=== PATIENT | male | born 1980 | race Caucasian/White ===

== ENCOUNTER 2021-06-19 11:38 | Inpatient (IN) | payer BC ==
[2021-06-19] MEDS ORDERED: IBUPROFEN 400 MG TABLET (FP) PO PRN (12:26)
[2021-06-19] MEDS ORDERED: ONDANSETRON *ODT* 4 MG TABLET SL PRN (12:26)
[2021-06-19] MEDS ORDERED: MAGNESIUM HYDROX 2400MG/30ML ORAL SUSPENSION 30 ML CUP PO PRN (12:26)
[2021-06-19] MEDS ORDERED: MAGNESIUM CITRATE 300 ML BOTTLE PO PRN (12:26)
[2021-06-19] MEDS ORDERED: BISMUTH SUBSALICYLATE 524 MG/30 ML PO PRN (12:26)
[2021-06-19] MEDS ORDERED: MENTHOL/PHENOL 1 EACH UD MM PRN (12:26)
[2021-06-19] MEDS ORDERED: NICOTINE 10 MG CARTRIDGE (INHALER) IH PRN (12:26)
[2021-06-19] MEDS ORDERED: ACETAMINOPHEN 325 MG TABLET (FP) PO PRN ×2 (12:26)
[2021-06-19] MEDS ORDERED: diazePAM 5 MG TABLET PO PRN (12:26)
[2021-06-19] MEDS ORDERED: METHOCARBAMOL 500 MG TABLET PO PRN (12:26)
[2021-06-19] MEDS ORDERED: MAG HYDROX/AL HYDROX/SIMETH 30 ML UNIT-DOSE CUP PO PRN (12:26)
[2021-06-19 12:41] VITALS: BMI 26.2
[2021-06-19] MEDS ORDERED: ALBUTEROL SO4 HFA INHALER IH PRN (14:34)
[2021-06-19] MEDS: hydrOXYzine PAMOATE 25 MG CAPSULE (FP) PO SCH ×3 (15:00→22:27)
[2021-06-19] MEDS: NICOTINE 14 MG/24 HOURS TOPICAL PATCH TD SCH (15:58)
[2021-06-19] MEDS: PRENATAL VITAMINS W/ FOLIC ACID TABLET (FP) PO SCH (15:58)
[2021-06-19 17:06] LABS: HEMATOCRIT 38.1 % (35.4-49); HEMOGLOBIN 12.6 GM/dL (11.7-16.9); MCH 27.9 pg (25.7-33.7); MEAN CELL VOLUME 84.5 fl (80-96); MEAN PLT VOLUME 10.3 fl (7.5-11.1); PLATELET COUNT 115 10^3/uL (134-434); RBC 4.51 M/mm3 (4.00-5.60); RDW 14.2 % (11.9-15.9); WHITE BLOOD COUNT 3.5 K/mm3 (4.0-10.0)
[2021-06-19 17:13] LABS: ALBUMIN 3.3 g/dl (3.4-5.0); BLOOD UREA NITROGEN 5.7 mg/dL (7-18); CALCIUM 8.9 mg/dL (8.5-10.1)
[2021-06-19 17:18] LABS: BILIRUBIN,TOTAL 0.2 mg/dL (0.2-1); TOT PROT 7.1 g/dl (6.4-8.2)
[2021-06-19] MEDS: diazePAM 5 MG TABLET PO SCH ×2 (17:26→22:27)
[2021-06-19] MEDS: THIAMINE HCL 100 MG TABLET (FP) PO SCH (22:27)
[2021-06-19] MEDS: MELATONIN 5 MG TABLETS PO SCH (22:27)
[2021-06-20] MEDS ORDERED: methaDONE HCL 10 MG TABLET ONE (04:42)
[2021-06-20] MEDS ORDERED: methaDONE HCL 40 MG DISPERSABLE TABLET ONE (04:43)
[2021-06-20] MEDS: diazePAM 5 MG TABLET PO SCH ×4 (05:16→22:23)
[2021-06-20] MEDS: hydrOXYzine PAMOATE 25 MG CAPSULE (FP) PO SCH ×5 (05:16→22:23)
[2021-06-20] MEDS ORDERED: methaDONE HCL 40 MG DISPERSABLE TABLET PO SCH (10:00)
[2021-06-20] MEDS: PRENATAL VITAMINS W/ FOLIC ACID TABLET (FP) PO SCH (10:30)
[2021-06-20] MEDS: NICOTINE 14 MG/24 HOURS TOPICAL PATCH TD SCH (10:31)
[2021-06-20] MEDS ORDERED: QUEtiapine FUMARATE 50 MG TABLET PO SCH (22:00)
[2021-06-20] MEDS ORDERED: DIVALPROEX NA *ER* EXTEND REL 250 MG TABLET.SA PO SCH (22:00)
[2021-06-20] MEDS: QUEtiapine FUMARATE 200 MG TABLET PO SCH (22:22)
[2021-06-20] MEDS: DIVALPROEX NA *ER* EXTEND REL 250 MG TABLET.SA PO SCH (22:23)
[2021-06-20] MEDS: MELATONIN 5 MG TABLETS PO SCH (22:23)
[2021-06-20] MEDS: THIAMINE HCL 100 MG TABLET (FP) PO SCH (22:25)
[2021-06-21] MEDS ORDERED: methaDONE HCL 40 MG DISPERSABLE TABLET ONE (04:18)
[2021-06-21] MEDS ORDERED: methaDONE HCL 10 MG TABLET ONE (04:18)
[2021-06-21] MEDS: hydrOXYzine PAMOATE 25 MG CAPSULE (FP) PO SCH ×5 (05:42→22:42)
[2021-06-21] MEDS: diazePAM 5 MG TABLET PO SCH ×3 (05:42→22:41)
[2021-06-21] MEDS: DIVALPROEX NA *ER* EXTEND REL 250 MG TABLET.SA PO SCH ×2 (10:28→22:41)
[2021-06-21] MEDS: NICOTINE 14 MG/24 HOURS TOPICAL PATCH TD SCH (10:28)
[2021-06-21] MEDS: PRENATAL VITAMINS W/ FOLIC ACID TABLET (FP) PO SCH (10:28)
[2021-06-21] MEDS: SERTRALINE HCL 50 MG TABLET (FP) PO SCH (10:29)
[2021-06-21] MEDS: ARIPiprazole 5 MG TABLET PO SCH (10:29)
[2021-06-21 18:27] LABS: HIV INTERPRETATION NEGATIVE (NEGATIVE)
[2021-06-21] MEDS: MELATONIN 5 MG TABLETS PO SCH (22:40)
[2021-06-21] MEDS: QUEtiapine FUMARATE 200 MG TABLET PO SCH (22:41)
[2021-06-21] MEDS: THIAMINE HCL 100 MG TABLET (FP) PO SCH (22:42)
[2021-06-22] MEDS ORDERED: methaDONE HCL 10 MG TABLET ONE (04:20)
[2021-06-22] MEDS ORDERED: methaDONE HCL 40 MG DISPERSABLE TABLET ONE (04:21)
[2021-06-22] MEDS: hydrOXYzine PAMOATE 25 MG CAPSULE (FP) PO SCH ×5 (05:26→22:28)
[2021-06-22] MEDS: diazePAM 5 MG TABLET PO SCH ×2 (05:27→17:49)
[2021-06-22] MEDS: DIVALPROEX NA *ER* EXTEND REL 250 MG TABLET.SA PO SCH ×2 (10:30→22:28)
[2021-06-22] MEDS: PRENATAL VITAMINS W/ FOLIC ACID TABLET (FP) PO SCH (10:30)
[2021-06-22] MEDS: SERTRALINE HCL 50 MG TABLET (FP) PO SCH (10:30)
[2021-06-22] MEDS: ARIPiprazole 5 MG TABLET PO SCH (10:30)
[2021-06-22] MEDS: NICOTINE 14 MG/24 HOURS TOPICAL PATCH TD SCH (10:33)
[2021-06-22] MEDS: busPIRone HCL 5 MG TABLET PO SCH (13:36)
[2021-06-22] MEDS: QUEtiapine FUMARATE 200 MG TABLET PO SCH (22:28)
[2021-06-22] MEDS: MELATONIN 5 MG TABLETS PO SCH (22:28)
[2021-06-22] MEDS: THIAMINE HCL 100 MG TABLET (FP) PO SCH (22:28)
[2021-06-23] MEDS ORDERED: methaDONE HCL 10 MG TABLET ONE (05:01)
[2021-06-23] MEDS ORDERED: methaDONE HCL 40 MG DISPERSABLE TABLET ONE (05:02)
[2021-06-23] MEDS: hydrOXYzine PAMOATE 25 MG CAPSULE (FP) PO SCH ×2 (05:24→10:19)
[2021-06-23] MEDS ORDERED: diazePAM 5 MG TABLET PO ONE (06:00)
[2021-06-23 09:20] VITALS: BP 107/63; PULSE 86; TEMP 97.1
[2021-06-23] MEDS: SERTRALINE HCL 50 MG TABLET (FP) PO SCH (10:19)
[2021-06-23] MEDS: busPIRone HCL 5 MG TABLET PO SCH (10:19)
[2021-06-23] MEDS: DIVALPROEX NA *ER* EXTEND REL 250 MG TABLET.SA PO SCH (10:19)
[2021-06-23] MEDS: PRENATAL VITAMINS W/ FOLIC ACID TABLET (FP) PO SCH (10:19)
[2021-06-23] MEDS: ARIPiprazole 5 MG TABLET PO SCH (10:19)
[2021-06-23] MEDS: NICOTINE 14 MG/24 HOURS TOPICAL PATCH TD SCH (10:20)
== END 2021-06-23 11:26 | disposition other institution (70) | DRG 773 ==
LOC: YASAS 11:38 → Y3N 13:29
PROVIDERS: ADMIT Allergy & Immunology; ATTEND Allergy & Immunology
PROC: HZ2ZZZZ Detoxification Services for Substance Abuse Treatment (ICD-10-PCS; principal; 2021-06-19)
DX: F10.230 Alcohol dependence with withdrawal, uncomplicated (principal); F11.20 Opioid dependence, uncomplicated; F14.20 Cocaine dependence, uncomplicated; F12.20 Cannabis dependence, uncomplicated; F17.210 Nicotine dependence, cigarettes, uncomplicated; F19.24 Other psychoactive substance dependence with psychoactive substance-induced mood disorder; F31.9 Bipolar disorder, unspecified; E88.09 Other disorders of plasma-protein metabolism, not elsewhere classified; J45.909 Unspecified asthma, uncomplicated; B18.2 Chronic viral hepatitis C
CPT/HCPCS: 36415; 71046-TC-FY; 80053; 80164; 85027; 86780; 87389; C9803; U0003; U0005